=== PATIENT | male | born 1970 | race Caucasian/White ===

== ENCOUNTER 2018-08-10 12:26 | Emergency (ER) | payer MEDICAID ==
[~2018-08-10] VITALS: Ht 175.3 cm; Wt 81.8 kg
[2018-08-10 12:53] VITALS: BP 156/103
[2018-08-10] MEDS ORDERED: BUPIVAcaine/PF 2.5 mg/ml (0.25%) 30ml vial IJ ONE (16:00)
[2018-08-10] MEDS ORDERED: BUPIVAcaine 0.5% W/EPI /PF 30ml vial IJ ONE (16:15)
[2018-08-10] MEDS ORDERED: orphenadrine citrate 60mg/2ml inj. IM ONE (16:45)
[2018-08-10] MEDS ORDERED: ketorolac tromethamine 15mg/ml inj. IM ONE (16:45)
== END 2018-08-10 16:58 | disposition home or self-care (01) ==
LOC: ER 12:27
DX: K04.7 Periapical abscess without sinus (principal); Z98.890 Other specified postprocedural states
CPT/HCPCS: 41800; 64400; 99283; 99284